=== PATIENT | male | born 1980 | race Caucasian/White ===

== ENCOUNTER 2016-11-03 11:23 | Emergency (ER) | payer MEDICAID ==
[2016-11-03 13:49] VITALS: BP 144/81
--- NOTE | 2016-11-03 14:01 | UC ---
Dental HPI - HPI Summary HPI Summary: "Here w/ RIGHT upper jaw dental pain x1 week. Pt states he's had broken tooth in RIGHT upper jaw for about 1 year now. States he's noticed some drainage from abscess in RIGHT upper jaw starting last week and feels like infection is spreading to face. Also c/o bilat eye redness/drainage and irritation starting last week. States LEFT eye irritation cleared up in 1 day, but still has RIGHT eye redness/drainage and irritation. Denies any loss or change in vision. Taking tyleonl 1000mg prn for pain, last dose today 0900 w/ some pain relief. Using visine eye drops prn as well. " per icer hand note. c/o rt cheek swelling, rt ear pain and some neck swelling. wears contact lenses. denies trauma to eye or vision loss. + goopy d/c rt eye and crusted shut. Here with his GF. - History of Current Complaint Chief Complaint: UCEye Stated Complaint: EYE AND TOOTH PAIN Time Seen by Provider: 11/03/16 13:51 - Allergies/Home Medications Allergies/Adverse Reactions: Allergies Allergy/AdvReac Type Severity Reaction Status Date / Time No Known Allergies Allergy Verified 11/03/16 13:41 PMH/Surg Hx/FS Hx/Imm Hx Previously Healthy: Yes - Surgical History Surgical History: Yes Surgery Procedure, Year, and Place: RIGHT/LEFT ACL Repair - Family History Known Family History: Positive: Cardiac Disease, Diabetes - Social History Alcohol Use: Weekly Substance Use Type: None Smoking Status (MU): Current Every Day Smoker Type: Cigarettes Amount Used/How Often: 1 ppd - Immunization History Most Recent Influenza Vaccination: NONE Most Recent Tetanus Shot: UTD Most Recent Pneumonia Vaccination: N/A Review of Systems Constitutional: Negative Skin: Negative Eyes: Drainage, Eye Redness ENT: Dental Pain, Ear Ache Respiratory: Negative Cardiovascular: Negative Gastrointestinal: Negative Genitourinary: Negative Motor: Negative Neurovascular: Negative Musculoskeletal: Negative Neurological: Negative Psychological: Negative All Other Systems Reviewed And Are Negative: Yes Physical Exam Triage Information Reviewed: Yes Appearance: Well-Appearing, No Pain Distress, Well-Nourished - very pleasant Vital Signs: Initial Vital Signs Temp 98.4 F 11/03/16 13:41 Pulse 72 11/03/16 13:41 Resp 18 11/03/16 13:41 BP 144/81 11/03/16 13:41 Pulse Ox 95 11/03/16 13:41 Vital Signs Reviewed: Yes Eyes: Positive: Conjunctiva Inflamed, Discharge - rt eye. ENT: Positive: Hearing grossly normal, Pharynx normal, TMs normal. Negative: Nasal drainage, TM bulging, TM dull, TM red, Tonsillar swelling, Tonsillar exudate Dental: Positive: Dental Fracture @ - rt upper, Abscess @ - small, rt upper molar, Other: - mild swelling over rt face. Neck exam: Normal Neck: Positive: Supple, Nontender, No Lymphadenopathy Respiratory Exam: Normal Respiratory: Positive: Lungs clear, Normal breath sounds, No respiratory distress, No accessory muscle use Cardiovascular Exam: Normal Cardiovascular: Positive: RRR, No Murmur, Pulses Normal Abdominal Exam: Normal Abdomen Description: Positive: Nontender, Soft Musculoskeletal Exam: Normal Neurological Exam: Normal Psychological Exam: Normal Skin Exam: Normal Dental Complaint Course/Dx - Differential Dx/Diagnosis Differential Diagnosis/Dx: Dental Abscess, Dental Caries, Fractured Tooth Provider Diagnoses: rt dental abscess and frx Discharge - Discharge Plan Condition: Stable Disposition: HOME Prescriptions: Amoxicillin/Clavulanate TAB* [Augmentin TAB 875*] 875 mg PO BID #20 tab Gentamicin 0.3% OPHTH.SOLN* 1 drop RIGHT EYE Q4H #1 btl Patient Education Materials: Dental Abscess (ED), Conjunctivitis (ED) Referrals: [facility] [Provider Group] - 2 Days Additional Instructions: -You should not wear your contact lenses for at least 5 days and your symptoms have resolved completely. You should be seen by an bulb brander if your symptoms do not resolve or worsen. Cold compresses to your eye can be helpful as well.
== END 2016-11-03 14:26 | disposition home or self-care (01) ==
LOC: UCCORT 11:23
DX: K04.7 Periapical abscess without sinus (principal); S02.5XXA Fracture of tooth (traumatic), initial encounter for closed fracture; F17.210 Nicotine dependence, cigarettes, uncomplicated; X58.XXXA Exposure to other specified factors, initial encounter; Y92.9 Unspecified place or not applicable
CPT/HCPCS: 99202; G0463

== ENCOUNTER 2018-04-11 12:22 | Emergency (ER) | payer OTHER ==
[2018-04-11 13:20] VITALS: BP 134/84
--- NOTE | 2018-04-11 13:32 | UC ---
Lower Extremity/Ankle HPI - HPI Summary HPI Summary: right foot pain after falling of stilts at work on Friday---seemed ok on Friday worsening pain and Friday---better today but he has keep foot elevated today - History of Current Complaint Chief Complaint: UCLowerExtremity Stated Complaint: RIGHT FOOT INJURY Time Seen by Provider: 04/11/18 13:18 Hx Obtained From: Patient Onset/Duration: Sudden Onset, Lasting Weeks - 3, Still Present Pain Intensity: 3 Pain Scale Used: 0-10 Numeric Aggravating Factor(s): Standing, Ambulation Alleviating Factor(s): Rest, Elevation Able to Bear Weight: Yes Related History: Occupational Injury - Allergies/Home Medications Allergies/Adverse Reactions: Allergies Allergy/AdvReac Type Severity Reaction Status Date / Time No Known Allergies Allergy Verified 04/11/18 13:20 Home Medications: Home Medications Ibuprofen TAB* [Motrin TAB* 800 MG] 800 mg PO ONCE PRN 04/11/18 [History Confirmed 04/11/18] PMH/Surg Hx/FS Hx/Imm Hx Previously Healthy: Yes - Surgical History Surgical History: Yes Surgery Procedure, Year, and Place: RIGHT/LEFT ACL Repairs - Family History Known Family History: Positive: Cardiac Disease, Diabetes - Social History Occupation: Employed Full-time Lives: With Family Alcohol Use: Weekly Alcohol Amount: 10 Substance Use Type: Marijuana Substance Use Comment - Amount & Last Used: last night Smoking Status (MU): Heavy Every Day Tobacco Smoker Type: Cigarettes Amount Used/How Often: 1 ppd - Immunization History Most Recent Influenza Vaccination: NONE Most Recent Tetanus Shot: UTD Most Recent Pneumonia Vaccination: N/A Review of Systems All Other Systems Reviewed And Are Negative: Yes Constitutional: Positive: Negative Skin: Positive: Negative Eyes: Positive: Negative ENT: Positive: Negative Respiratory: Positive: Negative Cardiovascular: Positive: Negative Gastrointestinal: Positive: Negative Genitourinary: Positive: Negative Motor: Positive: Negative Neurovascular: Positive: Negative Musculoskeletal: Positive: Arthralgia - right lateral foot Neurological: Positive: Negative Psychological: Positive: Negative Is Patient Immunocompromised?: No Physical Exam Triage Information Reviewed: Yes Appearance: Well-Appearing, No Pain Distress, Well-Nourished Vital Signs: Initial Vital Signs Temp 98 F 04/11/18 13:13 Pulse 85 04/11/18 13:13 Resp 18 04/11/18 13:13 BP 134/84 04/11/18 13:13 Pulse Ox 96 04/11/18 13:13 Vital Signs Reviewed: Yes Eye Exam: Normal Eyes: Positive: Conjunctiva Clear ENT Exam: Normal ENT: Positive: Normal ENT inspection, Hearing grossly normal. Negative: Trismus , Muffled voice, Hoarse voice Dental Exam: Normal Neck exam: Normal Neck: Positive: Supple, Nontender Respiratory Exam: Normal Respiratory: Positive: Chest non-tender, No respiratory distress, No accessory muscle use Cardiovascular Exam: Normal Cardiovascular: Positive: RRR, Pulses Normal, Brisk Capillary Refill Musculoskeletal Exam: Other Musculoskeletal: Positive: No Edema, Other: - pain in right 5 th MT area Neurological Exam: Normal Neurological: Positive: Alert, Muscle Tone Normal Psychological Exam: Normal Skin Exam: Normal Diagnostics - Radiology No standard instances Radiology Interpretation Completed By: Radiologist Summary of Radiographic Findings: non displaced right 5th metatarsal fracture Lower Extremity Course/Dx - Course Course Of Treatment: anne, antonio boot crutches ibuprfen, off work follow with ortho this week - Differential Dx/Diagnosis Provider Diagnosis: Nondisplaced fracture of fifth metatarsal bone of right foot Discharge - Sign-Out/Discharge Documenting (check all that apply): Patient Departure All imaging exams completed and their final reports reviewed: Yes - Discharge Plan Condition: Stable Disposition: HOME Patient Education Materials: Ibuprofen (By mouth), Crutch Instructions (ED), Foot Fracture in Adults (ED), R.I.C.E. Treatment (ED) Forms: *Work Release Referrals: Willard Castaneda MD [Medical Doctor] - 2 Days - Billing Disposition and Condition Condition: STABLE Disposition: Home
== END 2018-04-11 14:46 | disposition home or self-care (01) ==
LOC: UCCORT 12:22
DX: S92.354A Nondisplaced fracture of fifth metatarsal bone, right foot, initial encounter for closed fracture (principal); W17.89XA Other fall from one level to another, initial encounter; Y93.89 Activity, other specified; Y92.89 Other specified places as the place of occurrence of the external cause; Y99.0 Civilian activity done for income or pay; F17.210 Nicotine dependence, cigarettes, uncomplicated
CPT/HCPCS: 99213; G0463